=== PATIENT | female | born 1980 | race Caucasian/White ===

== ENCOUNTER 2021-10-18 07:37 | Outpatient (CLI) | payer OTHER, SELFPAY ==
[2021-10-18 08:09] LABS: Hematocrit 38.7 % (37.0-47.0); Hemoglobin 13.2 g/dL (12.0-15.0); Mean Corpuscular HGB Conc 34.1 g/dl (32-36); Mean Corpuscular Hemoglobin 31.9 pg (26-34); Mean Corpuscular Volume 93.5 fl (80-100); Mean Platelet Volume 9.3 fl (7.4-10.4); Platelet Count Result 246 k/mm3 (150-375); Red Blood Count 4.14 M/mm3 (4.2-5.4); Red Cell Distribution Width 12.3 % (11.5-14.5); White Blood Count 7.2 K/mm3 (4.5-10.0)
[2021-10-18 08:22] LABS: Anion Gap 5 mmol/L (8-16); Blood Urea Nitrogen 22 mg/dL (7-17); Calcium 8.6 mg/dL (8.4-10.2); Carbon Dioxide 23 mmol/L (22-30); Chloride 110 mmol/L (98-107); Cholesterol 127 mg/dL (0-200); Estimated Glomerular Filt Rate > 60; Glucose 93 mg/dL (65-110); HDL Direct 53 mg/dL; Potassium 4.6 mmol/L (3.4-5.0); Sodium 138 mmol/L (137-145); Triglycerides 35 mg/dL (<150)
[2021-10-18 08:33] LABS: LDL Cholesterol Direct 57 mg/dL
[2021-10-18 09:32] LABS: Vitamin D 25 Hydroxy 46.2 ng/mL
[2021-10-23 07:41] LABS: Carbamazepine Tegretol 2.9 mcg/mL (4.0-12.0)
== END 2021-10-18 07:38 | disposition home or self-care (01) ==
PROVIDERS: PCP Family Medicine; Visit Provider Nurse Practitioner Family
DX: R20.2 Paresthesia of skin (principal); G40.909 Epilepsy, unspecified, not intractable, without status epilepticus; Z13.220 Encounter for screening for lipoid disorders; Z13.1 Encounter for screening for diabetes mellitus; R53.83 Other fatigue
CPT/HCPCS: 36415; 80048; 80061; 80156; 82306; 82607; 84443; 85027

== ENCOUNTER 2022-01-04 09:51 | Outpatient (CLI) | payer OTHER, SELFPAY ==
[2022-01-04 11:06] LABS: Anion Gap 8 mmol/L (8-16); Blood Urea Nitrogen 11 mg/dL (7-17); Calcium 9.3 mg/dL (8.4-10.2); Carbon Dioxide 26 mmol/L (22-30); Chloride 104 mmol/L (98-107); Estimated Glomerular Filt Rate > 60; Glucose 89 mg/dL (65-110); Potassium 4.1 mmol/L (3.4-5.0); Sodium 138 mmol/L (137-145)
== END 2022-01-04 09:52 | disposition home or self-care (01) ==
LOC: ANHLAB 09:52
PROVIDERS: PCP Family Medicine; Visit Provider Family Medicine
DX: R07.9 Chest pain, unspecified (principal); I49.9 Cardiac arrhythmia, unspecified
CPT/HCPCS: 36415; 80048

== ENCOUNTER 2022-01-22 10:04 | Outpatient (CLI) | payer OTHER, SELFPAY ==
--- NOTE | 2022-01-22 10:11 | EST_ITS ---
Patient Info Name: Shannon Vargas Age: 41 years : 1980 Gender: Female Ht: 67 in Wt: 126 lbs BSA: 1.64 m2 HR: 60 bpm BP: 117 / 69 mmHg Heart Rhythm: Sinus Rhythm Exam Date: 01/22/2022 10:22 AM Exam Location: [facility] Stress Patient Status: Outpatient Admit Date: 01/22/2022 Staff Ordering Physician: Justin Mckenzie MD Attending Provider: Justin Mckenzie MD Exercise Technologist: Ruth Jauregui CT Exercise Physician: Dino Solorzano DO Exam Type: CA stress test treadmill Study Info Indications R07.9 - Chest pain, unspecified A treadmill exercise stress test was performed. Summary 1. 1. Negative Hank exercise stress test for ischemic ST changes by ECG criteria. However patient achieved only 81% MPHR for age group which reduces sensitivity of the test. 2. 2. Excellent functional capacity, achieving 12 METs of workload. 3. 3. Appropriate HR response to exercise. 4. 4. Appropriate HR recovery at 1 minute post exercise. 5. 5. No imaging with stress testing. 6. 6. Patient informed of the above results. Protocol: Hank Stress ECG Details Stage: REST Duration (min): 1 min : 11 sec Speed (mph): 0.0 Grade (%): 0 HR (bpm): 59 SBP (mmHg): 117 DBP (mmHg): 69 METS: --- Stage: REST Duration (min): 4 min : 13 sec Speed (mph): 0.0 Grade (%): 0 HR (bpm): 61 SBP (mmHg): 117 DBP (mmHg): 69 METS: --- Stage: REST Duration (min): 13 min : 12 sec Speed (mph): 0.0 Grade (%): 0 HR (bpm): 64 SBP (mmHg): 117 DBP (mmHg): 69 METS: --- Stage: STAGE 1 Duration (min): 1 min : 0 sec Speed (mph): 1.7 Grade (%): 10 HR (bpm): 90 SBP (mmHg): 117 DBP (mmHg): 69 METS: --- Stage: STAGE 1 Duration (min): 2 min : 0 sec Speed (mph): 1.7 Grade (%): 10 HR (bpm): 91 SBP (mmHg): 117 DBP (mmHg): 69 METS: --- Stage: STAGE 1 Duration (min): 3 min : 0 sec Speed (mph): 1.7 Grade (%): 10 HR (bpm): 92 SBP (mmHg): 128 DBP (mmHg): 70 METS: --- Stage: STAGE 2 Duration (min): 1 min : 0 sec Speed (mph): 2.5 Grade (%): 12 HR (bpm): 108 SBP (mmHg): 128 DBP (mmHg): 70 METS: --- Stage: STAGE 2 Duration (min): 2 min : 0 sec Speed (mph): 2.5 Grade (%): 12 HR (bpm): 110 SBP (mmHg): 155 DBP (mmHg): 70 METS: --- Stage: STAGE 2 Duration (min): 3 min : 0 sec Speed (mph): 2.5 Grade (%): 12 HR (bpm): 101 SBP (mmHg): 155 DBP (mmHg): 70 METS: --- Stage: STAGE 3 Duration (min): 1 min : 0 sec Speed (mph): 3.4 Grade (%): 14 HR (bpm): 115 SBP (mmHg): 145 DBP (mmHg): 70 METS: --- Stage: STAGE 3 Duration (min): 2 min : 0 sec Speed (mph): 3.4 Grade (%): 14 HR (bpm): 119 SBP (mmHg): 145 DBP (mmHg): 70 METS: --- Stage: STAGE 3 Duration (min): 3 min : 0 sec Speed (mph): 3.4 Grade (%): 14 HR (bpm): 12
--- NOTE | 2022-01-30 07:48 | WPDHOLTEREM ---
Holter/Event Monitor Holter/Event Monitor Date of procedure: 01/22/22 Holter/Event Procedure: 48 Hr Holter Monitor Indications: Chest pain Conclusion: 1. 48 hour holter monitor on 01/22/22. 2. Predominant rhythm is sinus rhythm. HR range 41-124 bpm; average HR 71 bpm. HR at 41 bpm was at 04:16. 3. There are 32 premature supraventricular complexes. There is one episode of atrial tachycardia at 130 bpm lasting 4 beats at 17:13. 4. There are 10 premature ventricular complexes. No ventricular tachycardia. 5. No sinoatrial or atrioventricular blocks. No significant pauses greater than 2 seconds. 6. No symptoms available for correlation.
== END 2022-01-22 10:05 | disposition home or self-care (01) ==
PROVIDERS: PCP Family Medicine; Visit Provider Family Medicine
DX: R07.9 Chest pain, unspecified (principal)
CPT/HCPCS: 93017; 93225; 93226

== ENCOUNTER 2023-04-27 08:34 | Outpatient (CLI) | payer OTHER, SELFPAY ==
[2023-04-27 09:07] LABS: Alanine Aminotransferase 26 U/L (6-35); Albumin Level 4.4 g/dL (3.5-5.1); Alkaline Phosphatase 56 U/L (38-126); Anion Gap 8 mmol/L (8-16); Aspartate Amino Transferase 27 U/L (14-36); Bilirubin,Total 0.6 mg/dL (0.2-1.3); Blood Urea Nitrogen 15 mg/dL (7-17); Calcium 9.4 mg/dL (8.4-10.2); Carbon Dioxide 27 mmol/L (22-30); Chloride 105 mmol/L (98-107); Cholesterol 170 mg/dL (0-200); Estimated Glomerular Filt Rate > 60; Glucose 97 mg/dL (65-110); HDL Direct 65 mg/dL; Sodium 140 mmol/L (137-145); Triglycerides 99 mg/dL (<150)
[2023-04-27 09:10] LABS: Basophils Percent Auto 0.2 % (0.2-1.2); Eosinophils Percent Auto 0.5 % (0-4.4); Hematocrit 43.4 % (37.0-47.0); Immature Granulocyte Absolute 0.02 K/mm3 (0.00-0.031); Immature Granulocyte Percent A 0.3 % (0-0.5); Lymphocytes Absolute Auto 2.09 K/mm3 (0.9-3.2); Lymphocytes Percent Auto 33.1 % (18.3-44.2); Mean Corpuscular HGB Conc 32.3 g/dl (32-36); Mean Corpuscular Hemoglobin 31.2 pg (26-34); Mean Corpuscular Volume 96.7 fl (80-100); Mean Platelet Volume 9.5 fl (7.4-10.4); Monocytes Absolute Auto 0.2 K/mm3 (0.1-0.6); Monocytes Percent Auto 3.8 % (2.6-8.5); Neutrophils Absolute Auto 3.9 K/mm3 (1.3-6.7); Neutrophils Percent Auto 62.1 % (45.5-73.1); Platelet Count Result 267 k/mm3 (150-375); Red Blood Count 4.49 M/mm3 (4.2-5.4); Red Cell Distribution Width 12.5 % (11.5-14.5); White Blood Count 6.3 K/mm3 (4.5-10.0)
[2023-04-27 09:18] LABS: LDL Cholesterol Direct 78 mg/dL
[2023-04-27 10:04] LABS: Vitamin D 25 Hydroxy 28.7 ng/mL
[2023-05-01 23:36] LABS: Carbamazepine Tegretol 6.9 mcg/mL (4.0-12.0)
== END 2023-04-27 08:35 | disposition home or self-care (01) ==
LOC: ANHLAB 08:35
PROVIDERS: PCP Family Medicine; Visit Provider Family Medicine
DX: E55.9 Vitamin D deficiency, unspecified (principal); F33.8 Other recurrent depressive disorders; F41.9 Anxiety disorder, unspecified; G40.909 Epilepsy, unspecified, not intractable, without status epilepticus; Z13.220 Encounter for screening for lipoid disorders
CPT/HCPCS: 36415; 80053; 80061; 80156; 82306; 84443; 85025

== ENCOUNTER 2023-08-08 13:12 | Emergency (ER) | payer OTHER, SELFPAY ==
[2023-08-08] VITALS (7 sets, daily range): BP systolic 91–117; BP diastolic 60–78; PULSE 54–65; RESP 15–18; TEMP 36.6; O2SAT 98–100
--- NOTE | ~2023-08-08 | CT_ITS ---
EXAMINATION: CT brain wo con DATE: 08/08/2023 14:42 INDICATION: Neck and upper back pain. Fall. TECHNIQUE: Computed tomography (CT) of the head was performed without intravenous contrast. The mA wa s adjusted according to patient size. Iterative reconstruction technique was employed. The dose-lengt h product was 681.00 mGy-cm. COMPARISON: None FINDINGS: There is no intracranial hemorrhage, acute infarction, or abnormal intracranial mass lesion . The ventricles are normal in size. There is mild mucosal thickening in the paranasal sinuses. The o rbits are normal. There are small bilateral mastoid effusions. IMPRESSION: 1. Normal brain. Reviewed, dictated and finalized at location A. TRICIAN LOCOMOTIVE IMPRESSION: 1. Normal brain.
--- NOTE | ~2023-08-08 | CT_ITS ---
EXAMINATION: CT cervical spine wo con DATE: 08/08/2023 14:43 INDICATION: Neck pain. Fall. TECHNIQUE: Computed tomography (CT) of the cervical spine was performed without intravenous contrast. Automated exposure control and iterative reconstruction technique were employed. The dose-length pro duct was 246.31 mGy-cm. COMPARISON: None FINDINGS: There is 3 degrees levocurvature of cervicothoracic spine. Vertebral body heights are hong l. Intervertebral disc heights are normal. At C7-T1, there is mild bilateral facet joint osteoarthrit is. No neural foraminal stenosis or central canal stenosis. IMPRESSION: 1. No fracture. Reviewed, dictated and finalized at location A. NG MACHINE OPERATOR IMPRESSION: 1. No fracture.
--- NOTE | 2023-08-08 14:49 | ED.FALL ---
HPI - Fall General Chief Complaint: Fall Stated Complaint: fall yesterday Time Seen by Provider: 08/08/23 14:03 History of Present Illness HPI Narrative: This is a 43-year-old female, past medical history of epilepsy, who presents to the emergency department after fallen brief loss of consciousness. The patient states she was cleaning dishes yesterday, when she attempted to catch a falling -, losing her balance and landing her right and stretched elbow. She had a brief loss of consciousness after which she return to her self. She denies changes symptoms consistent with seizure. She complains 4 to 5/10 mild, dull neck pain at the base of skull. She has no other complaints at this time. Related Data Allergies Allergy/AdvReac Type Severity Reaction Status Date / Time No Known Allergies Allergy Unknown Verified 08/08/23 13:12 Review of Systems Review of Systems: CONSTITUTIONAL: Denies fever, chills, or sweats. CARDIOVASCULAR: Denies chest pain, palpitations, or edema. RESPIRATORY: Denies cough or dyspnea. GASTROINTESTINAL: Denies abdominal pain, nausea, vomiting, or diarrhea. GENITOURINARY: Denies dysuria or hematuria. SKIN: Denies rash or itching. MUSCULOSKELETAL: Neck pain Denies joint pain, or myalgia. NEUROLOGIC: Denies headache, numbness, dizziness, or weakness. PSYCHIATRIC: Denies anxiety or depression. [facility] Past Medical History Medical History (Updated 08/08/23 @ 15:10 by Orville Lake MD) Adult BMI 19-24 kg/sq m Anxiety disorder, unspecified Arrhythmia Chest pain Epilepsy Seasonal affective disorder Tobacco abuse Surgical History Surgical History Hx of hysterectomy 2003 Family History Family History Daughter ADHD Anxiety associated with depression Son ADHD Anxiety associated with depression Father No problems noted. Mother No problems noted. Sibling No problems noted. Social History Social History Smoking packs per day: 1 Smoking cigarettes per day: 20.0 Years smoked: 20 Smoking pack-years: 20.00 Smoking status: Current every day smoker Tobacco type: cigarettes Second hand tobacco smoke exposure: Yes Alcohol intake: never Substance use: never Substance use type: does not use Lack of Transportation: No Lack of Food: Never True Current Housing: I Have Housing Concerned About Future Housing: No Difficulty Paying Gas/Electric Bills: No Difficulty Paying for Meds: No Currently Unemployed: No Education: Trade/Vocational Certificate Difficulty w/ Childcare or Family Care: No Living arrangements: alone Occupation/Education: occupation 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 HEAD: Normocephalic, atraumatic. EYES: PERRLA and EOMI. NECK: Supple. No carotid bruit. Mild midline spine tenderness to palpation at approximately C2, without step-off or crepitus. No other tenderness CHEST: Clear to auscultation. No respiratory distress. No wheezes rales or rhonchi HEART: Regular rate and rhythm. No murmur heard. Normal peripheral pulses. ABDOMEN: Soft, nontender, nondistended, normal active bowel sounds. EXTREMITIES: Normal range of motion. No edema. SKIN: Warm, dry, no rash. NEURO: Alert and oriented x3. No focal deficit. Moving all 4 limbs spontaneously. Cranial nerves 2-12 intact, no noted ataxia PSYCH: Normal mood and affect. Course Course Emergency Course: 15:37 - CT head negative for acute intracranial hemorrhage, mask or fracture. CT cervical spine negative for fracture or dislocation. Will discharge with arnold
== END 2023-08-08 15:56 | disposition home or self-care (01) ==
PROVIDERS: Emergency Provider Preventive Medicine Aerospace Medicine; PCP Family Medicine
DX: S16.1XXA Strain of muscle, fascia and tendon at neck level, initial encounter (principal); G40.909 Epilepsy, unspecified, not intractable, without status epilepticus; F17.210 Nicotine dependence, cigarettes, uncomplicated; F41.9 Anxiety disorder, unspecified; F33.9 Major depressive disorder, recurrent, unspecified; W18.39XA Other fall on same level, initial encounter; Y93.G1 Activity, food preparation and clean up
CPT/HCPCS: 70450; 72125; 99284

== ENCOUNTER 2024-02-10 18:27 | Emergency (ER) | payer OTHER, MEDICAID, SELFPAY ==
--- NOTE | ~2024-02-10 | XR_ITS ---
EXAMINATION: XR ankle RT min 3V, XR foot RT min 3V DATE: 02/10/2024 19:06 INDICATION: Right foot and ankle pain post fall TECHNIQUE: 1. Anteroposterior, mortise, additional oblique and lateral view of the right ankle were obtained. 2. Dorsoplantar, two oblique and lateral views of the right foot were obtained. COMPARISON: None. FINDINGS: Small mildly displaced fracture fragments along the lateral margin of the anterior process of the jose caneus which. Involving a small portion of the articular surface at the calcaneal cuboid joint. This could be related to either an impaction fracture or avulsion fracture at the footplate of the bifurca te ligament. 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 Irregular cortical contour along the anteromedial margin of the lateral malleolus suggesting additional heterotopic ossification related to prior trauma region of the anter ior-inferior tibiofibular ligament. Minimal to mild osteoarthritis at a few of the tarsal metatarsal and interphalangeal joints. Increased density anterior to the tibiotalar joint line suggesting the pr esence of an ankle joint effusion. IMPRESSION: 1. Small mildly displaced intra-articular either impaction or avulsion fracture at the lateral margin anterior process of the calcaneus. 2. 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 Reviewed, dictated and finalized at location A. IMPRESSION: 1. Small mildly displaced intra-articular either impaction or avulsion fracture at the lateral margin anterior process of the calcaneus. 2. 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
[2024-02-10 18:28] VITALS: BP 98/56; PULSE 59; RESP 17; TEMP 36.5; O2SAT 100
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
[2024-02-10] MEDS: HYDROcodone/acetaminophen (*CRX) 5-325 MG TABLET 1 TAB PO (19:37)
--- NOTE | 2024-02-10 20:14 | PC.NURSE ---
2009-SPLINT PLACEMENT CHECKED BY PROVIDER. NO CHANGES IN SPLINT NEEDED PER PROVIDER.
[2024-02-10 20:20] VITALS: BP 115/84; PULSE 58; RESP 20; TEMP 36.7; O2SAT 100
== END 2024-02-10 20:22 | disposition home or self-care (01) ==
PROVIDERS: Emergency Provider Physician Assistant; PCP Family Medicine
DX: S92.021A Displaced fracture of anterior process of right calcaneus, initial encounter for closed fracture (principal); G40.909 Epilepsy, unspecified, not intractable, without status epilepticus; Z90.710 Acquired absence of both cervix and uterus; F17.210 Nicotine dependence, cigarettes, uncomplicated; F41.9 Anxiety disorder, unspecified; W01.0XXA Fall on same level from slipping, tripping and stumbling without subsequent striking against object, initial encounter; X50.9XXA Other and unspecified overexertion or strenuous movements or postures, initial encounter
CPT/HCPCS: 29515; 73610; 73630; 99284; A9270

== ENCOUNTER 2024-03-25 11:31 | Outpatient (CLI) | payer OTHER, SELFPAY ==
--- NOTE | ~2024-03-25 | MM_ITS ---
EXAMINATION: MM screening surjit BI w yessenia HISTORY: Screening TECHNIQUE: Craniocaudal and mediolateral oblique 3-D tomosynthesis images were obtained and synthetic 2-D images were generated. CAD analysis was submitted and interpreted. COMPARISON: No prior mammogram is available for comparison at this institution. BREAST PARENCHYMAL COMPOSITION: Dense: The breasts are extremely dense, which lowers the sensitivity of mammography. FINDINGS: There is no evidence of suspicious mass, calcification, or architectural distortion to sugg est malignancy in either breast. There has been no suspicious interval change. IMPRESSION: 1. No mammographic evidence of malignancy. 2. Recommend routine screening mammography in one year. BI-RADS Category 1: Negative . Reviewed, dictated and finalized at location B.
--- NOTE | ~2024-03-25 | DEXA_ITS ---
Bone Density Report Name: PIPPA HOYT Age: 44 Sex: Female Ethnicity: White Date of : 1980 Indication: postmenopausal; height loss; seizure disorder; hysterectomy; Referring Provider: MANPREET HIGGINS Study: Bone densitometry was performed. Exam Date: March 25, 2024 Accession number: [id number] Bone Density: Region BMD T-score Z-score Classification AP Spine(L1-L4) 0.880 -1.5 -1.2 Osteopenia Femoral Neck (Left) 0.600 -2.2 -1.9 Osteopenia Total Hip (Left) 0.798 -1.2 -0.9 Osteopenia Femoral Neck (Right) 0.626 -2.0 -1.6 Osteopenia Total Hip (Right) 0.791 -1.2 -1.0 Osteopenia Femoral Neck Mean 0.613 -2.1 -1.8 Osteopenia Total Hip Mean 0.794 -1.2 -1.0 Osteopenia World Health Organization criteria for BMD impression classify patients as: Normal (T-score at or above -1.0), Osteopenia (T-score between -1.0 and -2.5), or Osteoporosis (T-score at or below -2.5). 10-year Fracture Risk(1): Major Osteoporotic Fracture 3.8% Hip Fracture 1.1% Reported Risk Factors: [place] (), Neck BMD=0.600, BMI=24.3, smoking (1) FRAX(R) Version 3.08. Fracture probability calculated for an untreated patient. Fracture probability may be lower if the patient has received treatment. Clinical Information Provided by Patient: Smokes Has used the following medications: Vitamin D Has the following medical conditions: Any Seizure Disorders, Hysterectomy Patient maximum height was 67 Menopause Age: 41 Drinks caffeinated beverages Onset of menses at age 13 Number of children 4 Impression: The patient has low bone mass, based on the Left Femoral Neck T-score. The patient has risk factors, including: smoking. Discussion: BONE DENSITY IS LOW AT ONE OR MORE SKELETAL SITES. This patient's lowest T-score is low at one or more skeletal sites. It meets the World Health Organization's (WHO) criteria for ?low bone mass? (T-score between -1.0 and -2.5). The patient's 10-year risk of fracture as calculated by FRAX is less than the threshold where pharmacological therapy is recommended by the National Osteoporosis Foundation (NOF). However, all treatment decisions require clinical judgment and consideration of individual patient factors, including patient preferences, comorbidities, previous drug use, risk factors not captured in the FRAX model (e.g., frailty, falls, vitamin D deficiency, increased bone turnover, interval significant decline in bone density) and possible under or overestimation of fracture risk by FRAX. The patient should follow a healthful lifestyle (good nutrition with adequate calcium and vitamin D, and appropriate weight-bearing exercise). Follow-Up: Consider repeating this study in 2 to 3 years to reassess this patient's status, or sooner if there is some new clini
== END 2024-03-25 11:32 | disposition home or self-care (01) ==
PROVIDERS: PCP Family Medicine; Visit Provider Family Medicine
DX: Z12.31 Encounter for screening mammogram for malignant neoplasm of breast (principal); Z78.0 Asymptomatic menopausal state; M85.89 Other specified disorders of bone density and structure, multiple sites
CPT/HCPCS: 77063; 77067; 77080

== ENCOUNTER 2024-03-26 14:59 | Outpatient (CLI) | payer OTHER, SELFPAY ==
[2024-03-26 17:10] LABS: Vitamin D 25 Hydroxy 43.5 ng/mL
== END 2024-03-26 15:00 | disposition home or self-care (01) ==
PROVIDERS: PCP Family Medicine; Visit Provider Family Medicine
DX: E55.9 Vitamin D deficiency, unspecified (principal)
CPT/HCPCS: 36415; 82306

== ENCOUNTER 2024-08-12 08:43 | Emergency (ER) | payer OTHER, SELFPAY ==
--- NOTE | ~2024-08-12 | XR_ITS ---
XR chest 2V Ordering provider: Myron Mayberry MD History: 44 years Female with . chest pain, sharp radiating right side, quit smoking 2 month . Comparison: None. FINDINGS: MEDIASTINUM: The cardiac silhouette is not enlarged. LUNGS: No pneumothorax. Blunting of the right costophrenic angle may indicate atelectasis versus mini mal effusion. Haziness in the left hemidiaphragm area laterally is noted which may indicate atelectas is versus pneumonia.. OTHER: No free air under the diaphragm. IMPRESSION: Blunting of the right costophrenic angle may indicate atelectasis versus minimal effusion. Haziness in the area of the left hemidiaphragm laterally which may indicate adjacent atelectasis vers us pneumonia. Reviewed, dictated and finalized at location A. [facility]ATOR IMPRESSION: Blunting of the right costophrenic angle may indicate atelectasis versus minima l effusion. Haziness in the area of the left hemidiaphragm laterally which may indicate adj acent atelectasis versus pneumonia.
[2024-08-12 08:47] VITALS: BP 123/75; PULSE 58; RESP 16; TEMP 37.1; O2SAT 100
--- NOTE | 2024-08-12 10:04 | ECG_ITS ---
Test Date: 2024-08-12 10:10:59 Measurements Intervals Shock Rate: 54 P: 53 DC: 163 QRS: 22 QRSD: 118 T: 1 QT: 417 QTc: 398 Interpretive Statements SINUS BRADYCARDIA No previous ECG available for comparison Electronically Signed On 08-12-2024 15:48:34 FLITCH HANGER by Cameron Obando M.D.
[2024-08-12 10:19] VITALS: PULSE 56
[2024-08-12 10:21] VITALS: BP 120/69; PULSE 55; RESP 18; O2SAT 100
[2024-08-12 10:23] LABS: Basophils Percent Auto 0.2 % (0.2-1.2); Eosinophils Percent Auto 0.7 % (0-4.4); Hematocrit 39.6 % (37.0-47.0); Hemoglobin 13.3 g/dL (12.0-15.0); Immature Granulocyte Absolute 0.01 K/mm3 (0.00-0.031); Immature Granulocyte Percent A 0.2 % (0-0.5); Lymphocytes Absolute Auto 1.83 K/mm3 (0.9-3.2); Lymphocytes Percent Auto 31.5 % (18.3-44.2); Mean Corpuscular HGB Conc 33.6 g/dl (32-36); Mean Corpuscular Hemoglobin 31.2 pg (26-34); Monocytes Absolute Auto 0.3 K/mm3 (0.1-0.6); Monocytes Percent Auto 5.3 % (2.6-8.5); Neutrophils Absolute Auto 3.6 K/mm3 (1.3-6.7); Neutrophils Percent Auto 62.1 % (45.5-73.1); Platelet Count Result 251 k/mm3 (150-375); Red Blood Count 4.26 M/mm3 (4.2-5.4); Red Cell Distribution Width 12.5 % (11.5-14.5); White Blood Count 5.8 K/mm3 (4.5-10.0)
[2024-08-12 10:35] LABS: INR 0.9; Prothrombin Time 12.4 Seconds (11.1-14.7)
[2024-08-12 10:36] LABS: Partial Thromboplastin Time 20.7 Seconds (22.3-36.8)
[2024-08-12 10:48] LABS: Troponin I < 0.012 ng/mL (0.000-0.034)
--- NOTE | 2024-08-12 10:49 | ED_ITS ---
HPI - General Adult General Chief complaint: Chest Pain Stated complaint: chest pain when breathing Time Seen by Provider: 08/12/24 09:59 History of Present Illness HPI narrative: 44-year-old female presenting to the emergency department for evaluation for right-sided chest wall pain that started on Saturday but has been worsening. Patient states even at rest she does have some chest wall discomfort but pain is worsened with deep inspiration. Patient denies any cardiac history. Patient denies any history of PE or DVT, patient denies being on any form of control or hormone replacement patient denies any recent history of cancer. Patient was a smoker for approximately 15 years but did recently quit. Related Data Home Medications ?Medication ?Instructions ?Recorded ?Confirmed ?Last Taken ?Type cholecalciferol (vitamin D3) 25 5,000 unit PO DAILY 03/26/24 05/18/24 Unknown History mcg (1,000 unit) capsule Allergies Allergy/AdvReac Type Severity Reaction Status Date / Time No Known Allergies Allergy Unknown Verified 08/12/24 08:46 Review of Systems 2 Review of Systems: All systems reviewed & are unremarkable except as noted in HPI and below PMFSH Past Medical History Medical History (Updated 08/12/24 @ 13:29 by Myron Mayberry MD) Paresthesia Other fatigue Hyperextension injury of cervical spine Calcaneus fracture, right Back pain Anal fissure External hemorrhoid Acute sinusitis Right upper quadrant pain Seasonal affective disorder Adult BMI 19-24 kg/sq m Tobacco abuse Anxiety disorder, unspecified Arrhythmia Chest pain Epilepsy Surgical History Surgical History Hx of tonsillectomy Hx of hysterectomy 2003 Family History Family History Daughter ADHD Anxiety associated with depression Son ADHD Anxiety associated with depression Father No problems noted. Mother Tobacco abuse Sibling No problems noted. Unknown History of bone cancer Social History Social History Smoking packs per day: 1 Smoking cigarettes per day: 20.0 Years smoked: 20 Smoking pack-years: 20.00 Smoking status: Former smoker Tobacco type: cigarettes and e-cigarettes/vaping Second hand tobacco smoke exposure: Yes Smoking end date: 06/10/24 Substance use: never Substance use type: does not use Do You Feel Safe in your Home?: Yes Lack of Transportation: No Lack of Food: Never True Current Housing: I Have Housing Concerned About Future Housing: No Difficulty Paying Gas/Electric Bills: No Difficulty Paying for Meds: No Currently Unemployed: No Education: Trade/Vocational Certificate Difficulty w/ Childcare or Family Care: No Living arrangements: with family Additional living arrangements comments: Getting in September. 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 HEAD: normocephalic, atraumatic. EYES: PERRLA/EOMI, conjunctivae clear. NOSE: Normal no drainage EARS:TMS clear with good light reflex. THROAT: Pharynx clear, no exudate. NECK: Supple. No adenopathy, no masses. RESPIRATORY: Airway patent, respirations nonlabored. Clear to auscultation bilaterally, no rales, rhonchi, wheezing. CARDIOVASCULAR: Regular rate and rhythm without murmurs rubs or gallops. ABDOMINAL: Soft, nontender, nondistended, normal bowel sounds MUSCULOSKELETAL: Right-sided chest wall tenderness to palpation NEURO: Alert. Cranial nerves II through XII intact. Good gait. Good coordination SKIN: Warm, dry. Normal Color, no rash, no shingles, no ecchymosis Course Vital Signs Vital signs: Vital Signs Temperature 98.7 F 08/12/24 08:47 Pulse Rate 58 L 08/12/24 08:47 Respiratory Rate 16 08/12/24 08:47 Blood Pressure 123/75 08/12/24 08:47 Pulse Oximetry 100 08/12/24 08:47 Oxygen Delivery Room Air 08/12/24 08:47 Temperature 98.7 F 08/12/24 08:47 Pulse Rate 54 L 08/12/24 13:48 Respiratory Rate 17 08/12/24 13:48 Blood Pressure 100/68 08/12/24 13:48 Pulse Oximetry 99 08/12/24 13:48 Oxygen Delivery Room Air 08/12/24 10:20 Medical Decision Making MDM Narrative Medical decision making narrative: 44-year-old female presenting to the emergency department for evaluation for right-sided chest wall pain. Patient is currently afebrile with no leukocytosis hemoglobin of 13.3. Patient's INR was 0.9 and patient did not have an elevated D-dimer. No significant acute abnormalities on the patient's CMP and patient's initial troponin was negative. EKG showed sinus Marcio with heart rate 54. Chest x-ray showed possible left-sided atelectasis versus pneumonia and right- sided atelectasis versus small effusion. On re-evaluation patient reports that the Toradol did significantly help with her discomfort. Differential Diagnosis Differential Diagnosis: COVID, RSV, influenza, pneumonia, pulmonary embolism, pleurisy Vital Signs Vital Signs: Vital Signs Temperature 98.7 F 08/12/24 08:47 Pulse Rate 58 L 08/12/24 08:47 Respiratory Rate 16 08/12/24 08:47 Blood Pressure 123/75 08/12/24 08:47 Pulse Oximetry 100 08/12/24 08:47 Oxygen Delivery Room Air 08/12/24 08:47 Temperature 98.7 F 08/12/24 08:47 Pulse Rate 54 L 08/12/24 13:48 Respiratory Rate 17 08/12/24 13:48 Blood Pressure 100/68 08/12/24 13:48 Pulse Oximetry 99 08/12/24 13:48 Oxygen Delivery Room Air 08/12/24 10:20 Lab Data Lab results reviewed: Yes I reviewed the patient's lab results. 08/12/24 10:14 08/12/24 10:14 Labs: Lab Results 08/12/24 08/12/24 Range/Units 10:14 13:25 WBC 5.8 (4.5-10.0) K/mm3 RBC 4.26 (4.2-5.4) M/mm3 Hgb 13.3 (12.0-15.0) g/dL Hct 39.6 (37.0-47.0) % MCV 93.0 (80-100) fl MCH 31.2 (26-34) pg MCHC 33.6 (32-36) g/dl RDW 12.5 (11.5-14.5) % Plt Count 251 (150-375) k/mm3 MPV 9.0 (7.4-10.4) fl Immature Gran % (Auto) 0.2 (0-0.5) % Neut % (Auto) 62.1 (45.5-73.1) % Lymph % (Auto) 31.5 (18.3-44.2) % Mora % (Auto) 5.3 (2.6-8.5) % Eos % (Auto) 0.7 (0-4.4) % Baso % (Auto) 0.2 (0.2-1.2) % Lymph # (Auto) 1.83 (0.9-3.2) K/mm3 Mora # (Auto) 0.3 (0.1-0.6) K/mm3 Eos # (Auto) 0.0 (0-0.3) K/mm3 Baso # (Auto) 0.0 (0.0-0.1) K/mm3 Abs Immat Gran (auto) 0.01 (0.00-0.031) K/mm3 Absolute Neuts (auto) 3.6 (1.3-6.7) K/mm3 Absolute Nucleated RBC 0.000 (0.0-0.012) K/mm3 Nucleated RBC % 0.0 (0.0-0.2) % PT 12.4 (11.1-14.7) Seconds INR 0.9 APTT 20.7 L (22.3-36.8) Seconds D-Dimer < 0.27 (<0.48) ug/mL Sodium 137 (137-145) mmol/L Potassium 4.6 (3.4-5.0) mmol/L Chloride 103 (98-107) mmol/L Carbon Dioxide 27 (22-30) mmol/L Anion Gap 7 (4-12) mmol/L BUN 20 H (7-17) mg/dL Creatinine 0.62 L (0.7-1.0) mg/dL Estim Creat Clear Calc 93 ml/min Estimated GFR > 60 (59 - ) Glucose 93 (65-110) mg/dL Calcium 9.3 (8.4-10.2) mg/dL Total Bilirubin 0.6 (0.2-1.3) mg/dL AST 27 (14-36) U/L ALT 23 (6-35) U/L Alkaline Phosphatase 55 (38-126) U/L Troponin I < 0.012 < 0.012 (0.000-0.034) ng/mL Total Protein 7.0 (6.3-8.2) g/dL Albumin 4.4 (3.5-5.1) g/dL Lipase 56 (23-300) U/L Imaging Data Radiologist's impression: Impressions Chest X-Ray 08/12/24 10:37 IMPRESSION: Blunting of the right costophrenic angle may indicate atelectasis versus minimal effusion. Haziness in the area of the left hemidiaphragm laterally which may indicate adjacent atelectasis versus pneumonia. Discharge Plan Discharge Clinical Impression: Right-sided chest wall pain, Pleurisy Patient Disposition: Home, Self-Care Condition: Stable Instructions: Antibiotic Form, Pleurisy (ED), Chest Wall Pain (ED) Additional Instructions: Ibuprofen scheduled for pain control as directed. [place]ar[place] as needed for additional pain control. Have close follow-up with your primary care physician. If you have any worsening symptoms then please call or return to the emergency department. Patient Language: Malay Prescriptions: New hydrocodone-acetaminophen 5-325 mg tablet 1 tablet PO Q12H PRN (Reason: pain) 5 Days Qty: 10 0RF No Action fluoxetine 20 mg capsule 20 mg PO DAILY 120 Days Qty: 120 3RF cholecalciferol (vitamin D3) 25 mcg (1,000 unit) capsule 5,000 unit PO DAILY carbamazepine 400 mg tablet extended release 12 hr 400 mg PO DAILY Qty: 90 1RF Follow-up/Referrals: Justin Mckenzie MD [Primary Care Provider] - Stand Alone Forms: Work/School Release IP Quality HEART score for chest pain patients History: slightly suspicious ECG: normal Age: < or = to 45 years Risk factors: 1 or 2 risk factors Troponin: < or = to 1x normal limit Heart score: 1
[2024-08-12 10:50] LABS: Alanine Aminotransferase 23 U/L (6-35); Albumin Level 4.4 g/dL (3.5-5.1); Alkaline Phosphatase 55 U/L (38-126); Anion Gap 7 mmol/L (4-12); Aspartate Amino Transferase 27 U/L (14-36); Bilirubin,Total 0.6 mg/dL (0.2-1.3); Blood Urea Nitrogen 20 mg/dL (7-17); Calcium 9.3 mg/dL (8.4-10.2); Carbon Dioxide 27 mmol/L (22-30); Chloride 103 mmol/L (98-107); Estimated CRCL calculation 93 ml/min; Estimated Glomerular Filt Rate > 60; Glucose 93 mg/dL (65-110); Lipase 56 U/L (23-300); Potassium 4.6 mmol/L (3.4-5.0); Sodium 137 mmol/L (137-145)
[2024-08-12 11:11] VITALS: BP 115/74; PULSE 58; RESP 17; O2SAT 99
[2024-08-12] MEDS: KETOROLAC 15 MG/ML VIAL (*BKC) IV PUSH (11:11)
[2024-08-12 11:19] LABS: D Dimer < 0.27 ug/mL (<0.48)
[2024-08-12 13:48] VITALS: BP 100/68; PULSE 54; RESP 17; O2SAT 99
[2024-08-12 15:22] LABS: Troponin I < 0.012 ng/mL (0.000-0.034)
== END 2024-08-12 13:49 | disposition home or self-care (01) ==
PROVIDERS: Emergency Provider Emergency Medicine; PCP Family Medicine
DX: R09.1 Pleurisy (principal); R07.89 Other chest pain; G40.909 Epilepsy, unspecified, not intractable, without status epilepticus; F41.9 Anxiety disorder, unspecified; Z87.891 Personal history of nicotine dependence; Z90.710 Acquired absence of both cervix and uterus; R91.8 Other nonspecific abnormal finding of lung field; Z79.899 Other long term (current) drug therapy; R00.1 Bradycardia, unspecified
CPT/HCPCS: 36415; 71046; 80053; 83690; 84484; 85025; 85380; 85610; 85730; 93005; 96374; 99284; J1885

== ENCOUNTER 2025-04-19 12:36 | Outpatient (CLI) | payer OTHER, SELFPAY ==
--- OUTSIDE RECORDS SUMMARY | 2008-02-25 04:00 | XMS_ITS | Continuity of Care Document ---
Author Organization [facility] Address [address] [place] [address] [address] [place] [address] Phone Care Team Providers Care Chick Sexer Name Role Phone Mcnally OD, Jean Unavailable Unavailable Procedures Procedure Date Eye Exam, New Patient Refraction Advance Directives Directive Yes / No Effective Date File Name No Information Encounters Encounter Description Practice Location Reason(s) For Visit Diagnoses Date Provider Providers Copied on Encounter [facility], [address] [place] [address] [address], [place], [place], [id number], [place] tel:[phone] SEC [facility] No Information 7-200 8 Mcnally OD Jean. [address] , [address], [place], [address], [place]. tel:[phone] Family History Family Member Type Diagnosis Age At Onset No Information Payers Payer name Insurance type Covered alliance party ID Authoriza tion(s) Medicaid [facility] [id number] Social History Type Description Quantity Date Captured Comments Sex Female Smoking Status No Information Chief Complaint And Reason For Visit No Information Reason For Referral Reason For Referral No Information History Of Present Illness Encounter Date Complaint History Of Prese nt Illness No Information Functional Status Date Functional Assessmen t No Information Instructions Date Instruction Additional Infor mation No Information Assessments Type Assessment Date No Information Patient Care Teams Name Effective Dates (start - stop) Status Members No Information
[2025-04-19 13:15] LABS: Hematocrit 42.8 % (37.0-47.0); Hemoglobin 14.3 g/dL (12.0-15.0); Immature Granulocyte Percent A 0.2 % (0-0.5); Lymphocytes Absolute Auto 2.04 K/mm3 (0.9-3.2); Mean Corpuscular HGB Conc 33.4 g/dl (32-36); Mean Corpuscular Hemoglobin 29.9 pg (26-34); Mean Corpuscular Volume 89.5 fl (80-100); Nucleated Red Blood Cells Absolute Auto 0.000 K/mm3 (0.0-0.012); Nucleated Red Blood Cells Perc 0.0 % (0.0-0.2); Platelet Count Result 297 k/mm3 (150-375); Red Blood Count 4.78 M/mm3 (4.2-5.4); White Blood Count 4.7 K/mm3 (4.5-10.0)
[2025-04-19 13:35] LABS: Alanine Aminotransferase 20 U/L (6-35); Albumin Level 4.3 g/dL (3.5-5.1); Alkaline Phosphatase 110 U/L (38-126); Anion Gap 5 mmol/L (4-12); Aspartate Amino Transferase 24 U/L (14-36); Bilirubin,Total 0.4 mg/dL (0.2-1.3); Blood Urea Nitrogen 18 mg/dL (7-17); Calcium 9.8 mg/dL (8.4-10.2); Carbon Dioxide 29 mmol/L (22-30); Chloride 103 mmol/L (98-107); Estimated Glomerular Filt Rate > 60; Glucose 91 mg/dL (65-110); Potassium 3.8 mmol/L (3.4-5.0); Sodium 137 mmol/L (137-145); Total Protein 7.3 g/dL (6.3-8.2)
[2025-04-20 06:07] LABS: Carbamazepine (Tegretol) 8.6 ug/mL (4.0-12.0)
== END 2025-04-19 12:37 | disposition home or self-care (01) ==
LOC: ANHLAB 12:37
PROVIDERS: PCP Family Medicine; Visit Provider Family Medicine
DX: G40.909 Epilepsy, unspecified, not intractable, without status epilepticus (principal)
CPT/HCPCS: 36415; 80053; 80156; 85025